=== PATIENT | female | born 1930 | race Caucasian/White ===

== ENCOUNTER 2019-01-25 13:11 | Inpatient (IN) | payer MEDICARE, OTHER ==
[~2019-01-25] VITALS: Ht 160 cm; Wt 102.0 kg
[2019-01-25] MEDS ORDERED: SODIUM CHLORIDE 0.9% 500 ML IVB ONE (13:13)
[2019-01-25] MEDS ORDERED: ONDANSETRON HCL 4 MG/2 ML VIAL IV ONE ×2 (13:15→15:30)
[2019-01-25] MEDS ORDERED: FAMOTIDINE (10MG/ML) 2ML VL IV ONE (13:15)
[2019-01-25 14:18] LABS: Albumin 3.2 g/dL (3.4-5.0); Calcium 9.4 mg/dL (8.5-10.1); Magnesium 2.4 mg/dL (1.6-2.6); Potassium 4.1 mmol/L (3.5-5.1)
[2019-01-25 14:23] LABS: BUN/Creatinine Ratio 39.6; Bilirubin, Total 3.1 mg/dL (0.2-1.0); Total Protein 7.4 g/dL (6.4-8.2)
[2019-01-25 14:46] LABS: Hematocrit 34.5 % (36.0-46.0); Hemoglobin 11.5 g/dL (12.2-16.2); Mean Corpuscular Hemoglobin 32.1 pg (28.0-32.0); Mean Corpuscular Hgb Conc. 33.3 g/dL (32.0-36.0); Mean Corpuscular Volume 96.2 fL (80.0-100.0); Platelet Count (auto) 121 10^3/uL (140-450); Red Blood Cells 3.59 10^6/uL (4.0-5.20); Red Cell Distribution Width 16.6 % (11.8-14.3); White Blood Cell 11.5 10^3/uL (4.4-10.8)
[2019-01-25 14:53] LABS: Basophils % (manual) 0 (0.0-2.0); Blast Cells 0; Eosinophils % (manual) 0 (0-7); Metamyelocytes % 0; Monocytes % (manual) 0 (0-12); Myelocytes % 0; Promyelocytes % 0; Reactive Lymphocytes 0
[2019-01-25 15:30] LABS: Band Neutrophils % (manual) 8; Lymphocytes % (manual) 1 (10.0-50.0)
[2019-01-25] MEDS ORDERED: LORazepam 2MG/ML-1ML VIAL IV ONE (15:30)
[2019-01-25] MEDS ORDERED: LEVOFLOXACIN 250MG 50 ML IV ONE (15:45)
[2019-01-25] MEDS ORDERED: DEXTROSE (50%) 50ML SYRG IV PRN (15:45)
[2019-01-25] MEDS ORDERED: MORPHINE SULF INJ 2 MG/ML SYRINGE 1ML IV PRN (15:45)
[2019-01-25] MEDS ORDERED: MORPHINE SULFATE 4 MG/ML SYR/VIAL IV PRN ×2 (15:45)
[2019-01-25] MEDS ORDERED: NITROGLYCERIN 0.4 MG SL TAB SL PRN (15:45)
[2019-01-25] MEDS ORDERED: ONDANSETRON HCL 4 MG/2 ML VIAL IV PRN (15:45)
[2019-01-25] MEDS ORDERED: LORazepam 2MG/ML-1ML VIAL IV PRN (15:45)
[2019-01-25] MEDS: SODIUM CHLORIDE 0.9% 1,000 ML IV SCH (16:05)
[2019-01-25 16:27] LABS: INR 1.11 (0.9-1.15); Partial Thromboplastin Time 28.2 sec (23.64-32.05)
[2019-01-25 17:05] LABS: Urine Bacteria MOD /hpf (None Seen); Urine Blood Negative /uL (Negative); Urine Specific Gravity 1.009 (1.001-1.035); Urine WBC 14 /hpf (0 - 5)
--- NOTE | 2019-01-25 18:33 | NUR ---
Telemetry admit from ER CONSTANZA REDMANRIE admitted to Telemetry unit after SBAR received. Patient oriented to Kathia Wagner primary RN, unit, room, bed, and unit policies regarding patient care and visiting hours. Patient now on continuous telemetry monitoring, tele box #31. Patient placed on bed side oxygen, weighed by bed scale and encouraged to call if they need something. All questions and concerns addressed, patient verbalized understanding. Instructed patient on POC, fall precautions and to call for assistance as needed. Patient verbalized understanding. Fall precautions in place with call light within reach. BSC at bedside per MD's order. Family at bedside. Family updated on POC.
--- NOTE | 2019-01-25 18:44 | NUR ---
Updated Waist Cutter on patient status Dr. Stern verbalized understanding.
[2019-01-25] MEDS: ACCU-CHEK COMFORT CURVE STRIP VI SCH ×2 (18:45→23:48)
[2019-01-25 18:49] LABS: Hematocrit 32.1 % (36.0-46.0); Hemoglobin 10.5 g/dL (12.2-16.2)
--- NOTE | 2019-01-25 19:18 | NUR ---
Care endorsed to BATSHEVA Andrade.
[2019-01-25] MEDS: InsuLIN REG 1unit/0.01ml Soln (100units/ml) SC SCH ×2 (19:21→23:54)
--- NOTE | 2019-01-25 19:47 | NUR ---
Opening Note Assumed pt care from day shift nurse. Pt is a/ox4 with no s/s of distress or sob. Pt is currently laying in bed with family members at bedside. Pt complains of mouth dryness. Explained to pt the need to maintain NPO status due to HIDA scan in the morning. Offered pt glycerine lemon swabs to moisten mouth. Discussed with pt the need to finish admission questions. Discussed POC with pt. Safety measures maintained with side rails up, bed in lowest position and call light within reach. Will continue to monitor for changes q1hr and prn.
[2019-01-25 22:00] VITALS: BP 105/45
[2019-01-25] MEDS ORDERED: PANTOPRAZOLE 40 MG TAB PO SCH (22:00)
[2019-01-25] MEDS: metroNIDAZOLE 500MG/100ML 100 ML IV SCH (22:26)
--- NOTE | 2019-01-25 22:58 | NUR ---
Barrier Cream Applied to Abdominal Folds and Xander-Area Pt has moderate amount of redness to her abdominal folds as well as her xander-area, due to moisture. Pt tolerated application well and stated that her caregiver also applied cream there frequently. Will continue to monitor and endorse to CNAs as well as day shift.
--- NOTE | 2019-01-25 23:10 | NUR ---
Pt Unaware of Medication Dosages Pt was able to recall with the help of ED list of Current Medications triage sheet, the medications she currently takes. Pt stated she does not know the dosages of the medications. She further stated that she provided the paramedics with her medication sheet but is unaware of where it ended up. Checked the pt's chart, to which I could not locate the sheet. Imputed the medications provided on the triage sheet, but the dosages are all unknown. Will endorse to day shift to follow up.
[2019-01-26] MEDS: SODIUM CHLORIDE 0.9% 1,000 ML IV SCH ×2 (00:56→11:44)
[2019-01-26] MEDS ORDERED: FURO20TA PO (01:15)
[2019-01-26] MEDS ORDERED: GLIP-115 PO (01:15)
[2019-01-26] MEDS ORDERED: AMIT10TA6 PO (01:15)
[2019-01-26] MEDS ORDERED: POTA10TA51 PO (01:15)
[2019-01-26] MEDS ORDERED: CARV3.1240 PO (01:15)
[2019-01-26] MEDS ORDERED: LISI2.5T47 PO (01:15)
[2019-01-26] MEDS ORDERED: ALLO100T PO (01:15)
[2019-01-26] MEDS ORDERED: AMLO5TAB13 PO (01:15)
[2019-01-26 02:24] LABS: Hematocrit 31.7 % (36.0-46.0); Hemoglobin 10.6 g/dL (12.2-16.2)
[2019-01-26 05:38] VITALS: BP 119/52
[2019-01-26] MEDS: InsuLIN REG 1unit/0.01ml Soln (100units/ml) SC SCH ×3 (05:40→18:00)
[2019-01-26] MEDS: metroNIDAZOLE 500MG/100ML 100 ML IV SCH (05:41)
[2019-01-26] MEDS: ACCU-CHEK COMFORT CURVE STRIP VI SCH ×3 (05:41→18:28)
--- NOTE | 2019-01-26 07:15 | NUR ---
OPENING SHIFT NOTE ASSUMED CARE OF PATIENT. PATIENT IS A&OX4, NPO, WITH C/O PAIN, TO BE MEDICATED PER MAR. BED IN LOW POSITION, BRAKES LOCKED, CALL LIGHT IN REACH AND BED RAILS UP X2. BEDSIDE COMMODE PRESENT. EDUCATED PATIENT SINGLE END SEWER LIGHT USE PRN, PATIENT VERBALIZED UNDERSTANDING. CONTINUING TO MONITOR Q1 HR
[2019-01-26 07:17] LABS: Albumin 2.7 g/dL (3.4-5.0); Calcium 8.9 mg/dL (8.5-10.1); Potassium 3.6 mmol/L (3.5-5.1)
[2019-01-26 07:21] LABS: Bilirubin, Total 4.1 mg/dL (0.2-1.0); Total Protein 6.6 g/dL (6.4-8.2)
[2019-01-26 07:26] LABS: Basophils # (auto) 0 uL; Basophils % (auto) 0.1 % (0.0-2.0); Eosinophils # (auto) 0 uL; Eosinophils % (auto) 0.3 % (0.0-7.0); Hematocrit 31.2 % (36.0-46.0); Hemoglobin 10.3 g/dL (12.2-16.2); Lymphocytes # (auto) 0.4 uL; Lymphocytes % (auto) 2.9 % (10.0-50.0); Mean Corpuscular Hemoglobin 32.2 pg (28.0-32.0); Mean Corpuscular Hgb Conc. 33.1 g/dL (32.0-36.0); Mean Corpuscular Volume 97.2 fL (80.0-100.0); Monocytes # (auto) 0.4 uL; Monocytes % (auto) 2.4 % (0.0-12.0); Neutrophils # (auto) 13.8 uL; Neutrophils % (auto) 94.3 % (37.0-80.0); Platelet Count (auto) 97 10^3/uL (140-450); Red Blood Cells 3.21 10^6/uL (4.0-5.20); Red Cell Distribution Width 16.4 % (11.8-14.3); White Blood Cell 14.6 10^3/uL (4.4-10.8)
--- NOTE | 2019-01-26 07:40 | NUR ---
CRITICAL LAB BUN 93 TRENDING DOWN
[2019-01-26 07:45] LABS: Amylase 33 U/L (25-115); BUN/Creatinine Ratio 37.2; Lipase 88 U/L (73-393)
--- NOTE | 2019-01-26 07:50 | NUR ---
DAUGHTER AT BEDSIDE DAUGHTER ADVISED OF DOSAGES FOR PATIENT AT HOME MEDS
--- NOTE | 2019-01-26 08:20 | NUR ---
FABRICE PATIENT TAKEN VIA WHEELCHAIR TO [facility]
--- NOTE | 2019-01-26 08:50 | NUR ---
[facility] CALLED ADVISED TO BRING DOWN 2MG MORPHINE PER MAR TO MEDICATE MY PATIENT WHO IS C/O PAIN DURING PROCEDURE
[2019-01-26] MEDS ORDERED: LEVOFLOXACIN 250MG 50 ML IV SCH (10:00)
--- NOTE | 2019-01-26 10:23 | NUR ---
Patient out of room for 0900 vitals.--EW
--- NOTE | 2019-01-26 11:43 | NUR ---
TRANSFER [facility] CONTACTED ME TO ADVISE THAT PATIENT WOULD BE PLACED IN ROOM 239A UPON ARRIVAL RECIEVED PHONE NUMBER TO GIVE REPORT AT [phone]
[2019-01-26 13:00] VITALS: BP 133/55
--- NOTE | 2019-01-26 14:08 | NUR ---
DR EVANS CLARIFICATION PATIENT TO TRANSFER WITH [facility] AND IV SITE
--- NOTE | 2019-01-26 15:56 | NUR ---
TRANSFER: PT WILL BE TRANSFERRED TO [facility], PH # IS [phone]. TRANSPORT WILL [facility] PT APPROX 1800 HRS [facility] MORE IS ARRANGING TRANSFER PH# IS [phone]
--- NOTE | 2019-01-26 16:02 | NUR ---
PT WILL GO TO RM 239A AT [facility]
[2019-01-26 17:00] VITALS: BP 149/55
--- NOTE | 2019-01-26 17:13 | NUR ---
BS CHECK 56 WILL RECHECK, DID GIVE CRANBERRY JUICE
--- NOTE | 2019-01-26 17:46 | NUR ---
BS CHECK PATIENT BS IS NOW 56-D50 GIVEN
--- NOTE | 2019-01-26 18:19 | NUR ---
PT BLOOD SUGAR IS 156
--- NOTE | 2019-01-26 18:30 | NUR ---
PATIENT DISCHARGED PATIENT LEFT WITH [facility], PATIENT LEFT WITH [facility]EN AND IV IN PLACE, TRANSFERED TO [facility], PT DAUGHTER LEFT WITH HER
--- NOTE | 2019-01-26 18:30 | NUR ---
REPORT GIVEN TO TITUS AT [facility]
[2019-01-27] MEDS ORDERED: FAMOTIDINE (10MG/ML) 2ML VL IV SCH (10:00)
== END 2019-01-26 18:55 | disposition short-term general hospital (02) | DRG 445 ==
LOC: ER 13:19 → TELE 13:20 → TELE-CENTR 18:35
PROVIDERS: ADMIT Internal Medicine; ATTEND Internal Medicine Geriatric Medicine
DX: K80.01 Calculus of gallbladder with acute cholecystitis with obstruction (principal); N17.9 Acute kidney failure, unspecified; N18.4 Chronic kidney disease, stage 4 (severe); I48.91 Unspecified atrial fibrillation; D69.6 Thrombocytopenia, unspecified; E11.21 Type 2 diabetes mellitus with diabetic nephropathy; E11.22 Type 2 diabetes mellitus with diabetic chronic kidney disease; E86.0 Dehydration; E66.01 Morbid (severe) obesity due to excess calories; I12.9 Hypertensive chronic kidney disease with stage 1 through stage 4 chronic kidney disease, or unspecified chronic kidney disease; I25.10 Atherosclerotic heart disease of native coronary artery without angina pectoris; E11.65 Type 2 diabetes mellitus with hyperglycemia; M10.9 Gout, unspecified; Z86.718 Personal history of other venous thrombosis and embolism; Z95.5 Presence of coronary angioplasty implant and graft; Z88.0 Allergy status to penicillin; Z68.39 Body mass index [BMI] 39.0-39.9, adult
CPT/HCPCS: 36415; 51702; 71045; 74176; 76705; 78226; 80053; 81001; 82150; 82962; 83036; 83690; 83735; 85007; 85014; 85018; 85025; 85027; 85045; 85610; 85652; 85730; 87040; 87077; 87086; 87088; 87186; 93005; 94761; 96361; 96365; 96375; 99291; G0378; J1815; J2405; J3490

== ENCOUNTER 2019-05-02 14:33 | Emergency (ER) | payer OTHER ==
[~2019-05-02] VITALS: Ht 167.6 cm; Wt 113.4 kg
[~2019-05-02 14:33] MED LIST: ALLO100T PO; AMIT10TA6 PO; AMLO5TAB15 PO; CARV3.1240 PO; FURO1TAB33 PO; GLIP5TAB12 PO; LISI2.5T47 PO; POTA10TA51 PO
[2019-05-02] MEDS ORDERED: TETANUS-DIPTH-ACEL PERTUSSIS 0.5ML SYRG IM ONE (16:00)
[2019-05-02 16:23] LABS: Basophils # (auto) 0.1 uL; Basophils % (auto) 0.9 % (0.0-2.0); Eosinophils # (auto) 0.3 uL; Eosinophils % (auto) 3.5 % (0.0-7.0); Hematocrit 31.5 % (36.0-46.0); Hemoglobin 10.2 g/dL (12.2-16.2); Lymphocytes # (auto) 1.5 uL; Lymphocytes % (auto) 16.8 % (10.0-50.0); Mean Corpuscular Hemoglobin 31.2 pg (28.0-32.0); Mean Corpuscular Hgb Conc. 32.3 g/dL (32.0-36.0); Mean Corpuscular Volume 96.7 fL (80.0-100.0); Monocytes # (auto) 0.3 uL; Monocytes % (auto) 3.6 % (0.0-12.0); Neutrophils # (auto) 6.5 uL; Neutrophils % (auto) 75.2 % (37.0-80.0); Platelet Count (auto) 159 10^3/uL (140-450); Red Blood Cells 3.26 10^6/uL (4.0-5.20); Red Cell Distribution Width 15.8 % (11.8-14.3); White Blood Cell 8.7 10^3/uL (4.4-10.8)
[2019-05-02 16:49] LABS: Alanine Aminotransferase 23 U/L (13-56); Anion Gap 8 (5-15); Aspartate Aminotransferase 35 U/L (15-37); BUN/Creatinine Ratio 39.5; Blood Urea Nitrogen 75 mg/dL (7-18); Calcium 9.8 mg/dL (8.5-10.1); Carbon Dioxide 38 mmol/L (21-32); Chloride 89 mmol/L (98-107); GFR African American 32 mL/min; GFR Non-African American 27 mL/min; Glucose 183 mg/dL (74-106); Magnesium 2.2 mg/dL (1.6-2.6); Potassium 3.2 mmol/L (3.5-5.1); Sodium 135 mmol/L (136-145)
[2019-05-02 16:54] LABS: Alkaline Phosphatase 211 U/L (45-117); Bilirubin, Total 0.7 mg/dL (0.2-1.0); Total Protein 7.6 g/dL (6.4-8.2)
[2019-05-02] MEDS ORDERED: LIDOCAINE 1% HCL (LOCAL ANESTH.) INJ 20ML MDV ONE (17:12)
[2019-05-02 17:13] LABS: INR 1.02 (0.9-1.15); Partial Thromboplastin Time 28.5 sec (23.64-32.05)
[2019-05-02 23:21] VITALS: BP 142/61
== END 2019-05-03 00:02 | disposition short-term general hospital (02) ==
LOC: ER 14:33 → EDBD 14:33 → ER 05-03 00:02
DX: S00.83XA Contusion of other part of head, initial encounter (principal); S50.812A Abrasion of left forearm, initial encounter; S00.81XA Abrasion of other part of head, initial encounter; S60.812A Abrasion of left wrist, initial encounter; E87.8 Other disorders of electrolyte and fluid balance, not elsewhere classified; E87.6 Hypokalemia; E11.22 Type 2 diabetes mellitus with diabetic chronic kidney disease; I13.0 Hypertensive heart and chronic kidney disease with heart failure and stage 1 through stage 4 chronic kidney disease, or unspecified chronic kidney disease; I50.42 Chronic combined systolic (congestive) and diastolic (congestive) heart failure; N18.9 Chronic kidney disease, unspecified; N17.9 Acute kidney failure, unspecified; Z88.0 Allergy status to penicillin; Z98.51 Tubal ligation status; Z98.61 Coronary angioplasty status; Z79.899 Other long term (current) drug therapy; W01.0XXA Fall on same level from slipping, tripping and stumbling without subsequent striking against object, initial encounter; Y93.01 Activity, walking, marching and hiking; Y92.89 Other specified places as the place of occurrence of the external cause; Y99.8 Other external cause status
CPT/HCPCS: 36415; 70450; 70486; 71250; 72125; 73110; 73130; 80053; 83735; 83880; 84484; 85025; 85610; 85730; 90471; 90715; 94761; 99285; J2001